=== PATIENT | female | born 1990 | race Caucasian/White ===

== ENCOUNTER 2017-01-29 14:28 | Emergency (ER) | payer BC ==
[~2017-01-29 14:28] MED LIST: ALBUTEROL17 GM; ALBUTEROL17 GM INH; DELTASONE20 MG PO; IBUPROFEN400 MG; MOTRIN PO; NO MEDICATIONS; PREDNISONE PO; TESSALON PERLE100 M1 PO; ZITHROMAX PO
[2017-01-29] MEDS ORDERED: ALLERGY MED (15:04)
[2017-01-29] MEDS ORDERED: ALBUTEROL INHALER (15:04)
[2017-01-29 15:43] LABS: URINE SOURCE CLEAN CATCH
[2017-01-29 15:46] LABS: URINE APPEARANCE CLOUDY; URINE BILIRUBIN NEG (NEG); URINE BLOOD 1+ (NEG); URINE COLOR YELLOW; URINE GLUCOSE NEG (NORM); URINE KETONE NEG (NEG); URINE LEUKOCYTE ESTERASE 3+ (NEG); URINE NITRATE NEG (NEG); URINE PH 6.5 (5-8); URINE PROTEIN TRACE (NEG); URINE UROBILINOGEN 0.2 MG/DL (NORM)
[2017-01-29 15:52] LABS: MICRO INDICATED? YES
[2017-01-29 16:39] LABS: CULTURE INDICATED? YES; URINE BACTERIA 3+ (NEG); URINE RBC 0-2 /[HPF] (0-2); URINE SQUAMOUS EPITHELIAL CELL MANY /[HPF]; URINE WBC 100-200 /[HPF] (0-5)
[2017-02-02 23:04] LABS: CHLAMYDIA TRACH Not Detected (Not Detected); N GONOR Detected (Not Detected)
== END 2017-01-29 16:08 | disposition home or self-care (01) ==
LOC: SED 14:28
PROVIDERS: Physician Assistant
DX: N39.0 Urinary tract infection, site not specified (principal); J45.909 Unspecified asthma, uncomplicated; F32.9 Major depressive disorder, single episode, unspecified; F17.200 Nicotine dependence, unspecified, uncomplicated; Z98.890 Other specified postprocedural states
CPT/HCPCS: 81003; 84703; 87086; 87088; 87186; 87210; 87491; 87591; 87808; 87905; 96372; 99283; J0696